=== PATIENT | female | born 1940 | race African-American/Black ===

== ENCOUNTER 2021-06-05 13:25 | Emergency (ER) | payer OTHER ==
[~2021-06-05] VITALS: Ht 175.3 cm; Wt 68.0 kg
[2021-06-05] MEDS ORDERED: SODIUM CHLORIDE 0.9% 250 ML IV ONE (14:15)
[2021-06-05] MEDS ORDERED: MECLIZINE 12.5MG TABLET PO ONE (14:15)
[2021-06-05] MEDS ORDERED: ONDANSETRON HCL 4MG/2ML INJ IV ONE (14:15)
[2021-06-05 14:29] LABS: BASOPHILS % 0.8 % (0.0-2.0); EOSINOPHILS % 0.3 % (0.0-5.0); HEMATOCRIT. 42.7 % (36.0-48.0); HEMOGLOBIN. 14.3 g/dL (12.0-16.0); MEAN CORPUSCULAR HEMOGLOBIN 30.2 pg (28.0-32.0); MEAN PLATELET VOLUME 8.8 fl (7.4-10.4); MONOCYTES % 3.5 % (2.0-8.0); NEUTROPHILS % 77.4 % (40.0-76.0); PLATELET 316 x1000/uL (130-400); RED BLOOD CELL COUNT 4.74 mill/uL (4.2-5.4); RED CELL DISTRIBUTION WIDTH 14.6 % (11.6-14.6)
[2021-06-05 14:35] LABS: CHLORIDE 101 mEq/L (98-107)
[2021-06-05] MEDS ORDERED: KCL 10MEQ/50ML PREMIX 50 ML IV ONE (15:00)
[2021-06-05] MEDS ORDERED: POTASSIUM CHLORIDE 20MEQ/PACKET PO ONE (15:00)
[2021-06-05 19:09] LABS: CLARITY URINE CLEAR (CLEAR); COLOR URINE YELLOW (YELLOW); KETONES URINE 1+ (NEGATIVE); LEUKOCYTE ESTERASE URINE NEGATIVE (NEGATIVE); NITRITE URINE NEGATIVE (NEGATIVE); OCCULT BLOOD URINE 1+ (NEGATIVE); PH URINE 6.5 (4.5-8.0); PROTEIN URINE TRACE (NEGATIVE); SPECIFIC GRAVITY URINE 1.011 (1.005-1.030)
[2021-06-05 22:43] VITALS: BP 139/72
== END 2021-06-05 23:00 | disposition short-term general hospital (02) ==
LOC: ER 13:46 → EDBD 13:46 → ER 23:00 → CANBEDREQ 06-06 01:38
DX: R55 Syncope and collapse (principal); R11.2 Nausea with vomiting, unspecified; R42 Dizziness and giddiness; E87.6 Hypokalemia
CPT/HCPCS: 36415; 70450; 71045; 80053; 81003; 83690; 83880; 84484; 85025; 93005; 96365; 96375; 99291; J2405; J7050; J8597

== ENCOUNTER 2021-07-04 13:33 | Inpatient (IN) | payer OTHER ==
[~2021-07-04] VITALS: Ht 167.6 cm; Wt 64.1 kg
[2021-07-04 15:30] LABS: HEMATOCRIT. 55.1 % (36.0-48.0); HEMOGLOBIN. 18.4 g/dL (12.0-16.0); MEAN CORPUSCULAR HEMOGLOBIN 29.6 pg (28.0-32.0); MEAN CORPUSCULAR VOLUME 88.7 fL (81.0-99.0); MEAN PLATELET VOLUME 11.3 fl (7.4-10.4); PLATELET 222 x1000/uL (130-400); RED BLOOD CELL COUNT 6.21 mill/uL (4.2-5.4)
[2021-07-04 15:38] LABS: CHLORIDE 104 mEq/L (98-107)
[2021-07-04] MEDS ORDERED: CEFTRIAXONE 1 G PREMIX 50 ML IV ONE (16:45)
[2021-07-04] MEDS ORDERED: SODIUM CHLORIDE 0.9% 1000ML BAG (SEPSIS BOLUS) IV ONE (16:45)
[2021-07-04] MEDS ORDERED: POTASSIUM CHLORIDE 20MEQ TABLET SR PO ONE (16:45)
[2021-07-04] MEDS ORDERED: KCL 10MEQ/50ML PREMIX 50 ML IV ONE ×2 (16:45)
[2021-07-04] MEDS ORDERED: KCL 20MEQ/100ML PREMIX 100 ML IV NR (17:00)
[2021-07-04 18:44] LABS: PLATELET ESTIMATE NORMAL
[2021-07-04] MEDS ORDERED: ONDANSETRON HCL 4MG/2ML INJ IV PRN (18:45)
[2021-07-04] MEDS ORDERED: IPRATROPIUM/ALBUTEROL 0.5-3(2.5)MG/3ML NEB HHN PRN (18:45)
[2021-07-04] MEDS: SODIUM CHLORIDE 0.45% 1,000 ML IV SCH (18:45)
[2021-07-04] MEDS ORDERED: MORPHINE SULFATE 2 MG/ML CPJ (NOT FOR IM USE) IV PRN (18:45)
[2021-07-04] MEDS ORDERED: ACETAMINOPHEN 325MG TABLET PO PRN ×2 (18:45)
[2021-07-04] MEDS: PIPERACILLIN/TAZOBACTAM 3.375 G in DEXTROSE 5% WATER 50 ML IV SCH (20:36)
[2021-07-05] MEDS: SODIUM CHLORIDE 0.45% 1,000 ML IV SCH (11:25)
[2021-07-05 11:55] LABS: BG BASE EXCESS -1.2 mmol/L (-2.0-2.0); BG CARBOXYHEMOGLOBIN 0.3 % (0.5-1.5); BG DEOXYHEMOGLOBIN 2.5 % (0.0-5.0); BG HCO3 ACT 19.4 mmol/L (22.0-26.0); BG METHEMOGLOBIN 0.3 % (0.0-1.5); BG OXYGEN SATURATION 97.5 % (92.0-98.5); BG OXYHEMOGLOBIN 96.9 % (94.0-97.0); BG PCO2 23.7 mmHg (35.0-45.0); BG PO2 99.7 mmHg (75.0-100.0); BG SAMPLE SITE RIGHT BRACHIAL; BG TOTAL HEMOGLOBIN 15.8 g/dL (12.0-18.0); BG VENT MODE ROOM AIR
[2021-07-05] MEDS: PIPERACILLIN/TAZOBACTAM 3.375 G in DEXTROSE 5% WATER 50 ML IV SCH ×2 (12:45→21:00)
[2021-07-05 15:30] LABS: HEMATOCRIT. 45.2 % (36.0-48.0); MEAN CORPUSCULAR HEMOGLOBIN 29.4 pg (28.0-32.0); MEAN CORPUSCULAR VOLUME 88.9 fL (81.0-99.0); MEAN PLATELET VOLUME 10.9 fl (7.4-10.4); PLATELET 166 x1000/uL (130-400); RED BLOOD CELL COUNT 5.09 mill/uL (4.2-5.4); RED CELL DISTRIBUTION WIDTH 15.5 % (11.6-14.6)
[2021-07-05 15:33] LABS: CHLORIDE 114 mEq/L (98-107)
[2021-07-05 18:55] LABS: PLATELET ESTIMATE NORMAL
[2021-07-05] MEDS ORDERED: NALOXONE HCL 0.4MG/ML VIAL IV PRN (20:30)
[2021-07-05] MEDS ORDERED: FAMOTIDINE 20MG TABLET PO SCH (21:00)
[2021-07-05] MEDS ORDERED: DILTIAZEM HCL 30MG TABLET PO PRN (21:49)
[2021-07-05] MEDS ORDERED: DILTIAZEM HCL 5MG/ML 5ML VIAL IV ONE ×2 (22:15→22:30)
[2021-07-06 00:17] LABS: CLARITY URINE CLOUDY (CLEAR); COLOR URINE YELLOW (YELLOW); KETONES URINE TRACE (NEGATIVE); LEUKOCYTE ESTERASE URINE NEGATIVE (NEGATIVE); NITRITE URINE NEGATIVE (NEGATIVE); OCCULT BLOOD URINE 1+ (NEGATIVE); PROTEIN URINE TRACE (NEGATIVE); SPECIFIC GRAVITY URINE 1.021 (1.005-1.030); UROBILINOGEN URINE 0.2 E.U./dL (0.2-1.0)
[2021-07-06 00:50] LABS: *BARBITURATES SCREEN URINE NEGATIVE (NEGATIVE); *BENZODIAZEPINES SCREEN URINE NEGATIVE (NEGATIVE); *COCAINE SCREEN URINE NEGATIVE (NEGATIVE)
[2021-07-06 00:51] LABS: *AMPHETAMINES SCREEN URINE NEGATIVE (NEGATIVE); CANNABINOID URINE SCREEN NEGATIVE (NEGATIVE); METHADONE URINE SCREEN NEGATIVE (NEGATIVE); OPIATES URINE SCREEN NEGATIVE (NEGATIVE); PHENCYCLIDINE URINE SCREEN NEGATIVE (NEGATIVE)
[2021-07-06 04:30] VITALS: BP 132/60
[2021-07-06] MEDS: SODIUM CHLORIDE 0.45% 1,000 ML IV SCH (06:08)
[2021-07-06 07:26] LABS: HEMATOCRIT. 41.2 % (36.0-48.0); MEAN CORPUSCULAR HEMOGLOBIN 30.1 pg (28.0-32.0); MEAN CORPUSCULAR VOLUME 88.7 fL (81.0-99.0); MEAN PLATELET VOLUME 11.1 fl (7.4-10.4); PLATELET 135 x1000/uL (130-400); RED BLOOD CELL COUNT 4.64 mill/uL (4.2-5.4); RED CELL DISTRIBUTION WIDTH 15.1 % (11.6-14.6)
[2021-07-06 08:00] VITALS: BP 144/90
[2021-07-06] MEDS: PIPERACILLIN/TAZOBACTAM 3.375 G in DEXTROSE 5% WATER 50 ML IV SCH ×3 (08:27→22:57)
[2021-07-06 08:41] LABS: CHLORIDE 118 mEq/L (98-107)
[2021-07-06 08:55] LABS: ETHANOL BLOOD < 10 mg/dL; LDL CHOLESTEROL 90 mg/dL (5-100); T4 FREE 1.43 ng/dL (0.76-1.46)
[2021-07-06 08:57] LABS: CREATINE KINASE 653 IU/L (26-192); HDL CHOLESTEROL 38 mg/dL (40-59); PHOSPHORUS 2.9 mg/dL (2.5-4.9)
[2021-07-06 09:17] LABS: VITAMIN B12 SERUM 697 pg/mL (211-911)
[2021-07-06 11:47] VITALS: BP 104/74
[2021-07-06] MEDS: DEXT 5%/0.2% NACL 1,000 ML IV SCH ×2 (11:51→21:21)
[2021-07-06 12:22] LABS: HEPATITIS B SURFACE ANTIGEN NEGATIVE
[2021-07-06 16:00] VITALS: BP 131/79
[2021-07-06 20:00] VITALS: BP 137/76
[2021-07-06] MEDS: FAMOTIDINE 20MG TABLET PO SCH (21:20)
[2021-07-07] VITALS: BP 148/84
[2021-07-07 00:46] LABS: PLATELET ESTIMATE NORMAL
[2021-07-07 04:00] VITALS: BP 142/82
[2021-07-07] MEDS: DEXT 5%/0.2% NACL 1,000 ML IV SCH (06:11)
[2021-07-07] MEDS: PIPERACILLIN/TAZOBACTAM 3.375 G in DEXTROSE 5% WATER 50 ML IV SCH (06:11)
[2021-07-07 07:07] LABS: PHOSPHORUS 2.1 mg/dL (2.5-4.9)
[2021-07-07 07:11] LABS: HEMATOCRIT. 37.2 % (36.0-48.0); HEMOGLOBIN. 12.8 g/dL (12.0-16.0); MEAN CORPUSCULAR HEMOGLOBIN 30.5 pg (28.0-32.0); MEAN CORPUSCULAR VOLUME 88.8 fL (81.0-99.0); MEAN PLATELET VOLUME 10.6 fl (7.4-10.4); PLATELET 104 x1000/uL (130-400); RED BLOOD CELL COUNT 4.19 mill/uL (4.2-5.4); RED CELL DISTRIBUTION WIDTH 15.1 % (11.6-14.6)
[2021-07-07 08:00] VITALS: BP 138/76
[2021-07-07] MEDS ORDERED: POTASSIUM CHLORIDE INJ 40 MEQ in DEXT 5% WATER 250 ML IV ONE (08:45)
[2021-07-07] MEDS ORDERED: POTASSIUM PHOS,M-BASIC-D-BASIC 15 MMOL in DEXT 5% WATER 245 ML IV SCH (10:00)
[2021-07-07] MEDS: DEXTROSE 5% WATER 1,000 ML IV SCH (10:55)
[2021-07-07] MEDS: KCL 20MEQ/100ML PREMIX 100 ML IV SCH ×2 (11:48→13:20)
[2021-07-07 12:00] VITALS: BP 157/78
[2021-07-07] MEDS: CEFEPIME 1,000 MG in DEXTROSE 5% WATER 50 ML IV SCH ×2 (13:20→22:57)
[2021-07-07] MEDS ORDERED: VANCOMYCIN 1 G PREMIX 200 ML IV NR (13:30)
[2021-07-07 15:42] VITALS: BP 124/65
[2021-07-07] MEDS: DOCUSATE SODIUM SUGAR FREE 100MG/10ML UDC NG SCH (17:00)
[2021-07-07] MEDS: METOCLOPRAMIDE HCL 5MG TABLET PO SCH (17:10)
[2021-07-07 20:00] VITALS: BP 139/85
[2021-07-07] MEDS: FAMOTIDINE 20MG TABLET PO SCH (21:40)
[2021-07-08] VITALS: BP 135/66
[2021-07-08] MEDS: METOCLOPRAMIDE HCL 5MG TABLET PO SCH ×3 (03:34→17:07)
[2021-07-08] MEDS: DEXTROSE 5% WATER 1,000 ML IV SCH ×2 (03:34→17:08)
[2021-07-08 04:00] VITALS: BP 147/62
[2021-07-08 06:59] LABS: PLATELET ESTIMATE SLIGHTLY DECREASED
[2021-07-08 08:00] VITALS: BP 155/82
[2021-07-08] MEDS ORDERED: VANCOMYCIN 750 MG PREMIX 150 ML IV SCH (08:00)
[2021-07-08] MEDS: CEFEPIME 1,000 MG in DEXTROSE 5% WATER 50 ML IV SCH ×2 (08:57→21:05)
[2021-07-08] MEDS: DOCUSATE SODIUM SUGAR FREE 100MG/10ML UDC NG SCH ×2 (09:00→17:00)
[2021-07-08 10:45] LABS: HEMATOCRIT. 37.2 % (36.0-48.0); HEMOGLOBIN. 12.4 g/dL (12.0-16.0); MEAN CORPUSCULAR HEMOGLOBIN 29.9 pg (28.0-32.0); MEAN CORPUSCULAR VOLUME 89.4 fL (81.0-99.0); MEAN PLATELET VOLUME 11.4 fl (7.4-10.4); PLATELET 80 x1000/uL (130-400); RED BLOOD CELL COUNT 4.16 mill/uL (4.2-5.4); RED CELL DISTRIBUTION WIDTH 15.5 % (11.6-14.6)
[2021-07-08 10:49] LABS: CHLORIDE 110 mEq/L (98-107)
[2021-07-08 10:55] LABS: PHOSPHORUS 1.7 mg/dL (2.5-4.9)
[2021-07-08 12:00] VITALS: BP 133/54
[2021-07-08] MEDS ORDERED: POTASSIUM PHOS,M-BASIC-D-BASIC 30 MMOL in DEXT 5% WATER 500 ML IV SCH (15:00)
[2021-07-08 16:00] VITALS: BP 146/83
[2021-07-08 16:34] LABS: PLATELET ESTIMATE DECREASED
[2021-07-08] MEDS: FAMOTIDINE 20MG TABLET PO SCH (21:05)
[2021-07-09] VITALS: BP 126/59
[2021-07-09] MEDS: DEXTROSE 5% WATER 1,000 ML IV SCH ×3 (00:45→10:46)
[2021-07-09] MEDS ORDERED: VANCOMYCIN 750 MG PREMIX 150 ML IV SCH (01:00)
[2021-07-09] MEDS: METOCLOPRAMIDE HCL 5MG TABLET PO SCH ×2 (01:48→10:46)
[2021-07-09 04:00] VITALS: BP 127/63
[2021-07-09 06:45] LABS: HEMATOCRIT. 35.2 % (36.0-48.0); HEMOGLOBIN. 11.9 g/dL (12.0-16.0); MEAN CORPUSCULAR VOLUME 88.3 fL (81.0-99.0); MEAN PLATELET VOLUME 11.7 fl (7.4-10.4); PLATELET 62 x1000/uL (130-400); RED BLOOD CELL COUNT 3.98 mill/uL (4.2-5.4); RED CELL DISTRIBUTION WIDTH 15.4 % (11.6-14.6)
[2021-07-09 08:00] VITALS: BP 137/66
[2021-07-09] MEDS: DOCUSATE SODIUM SUGAR FREE 100MG/10ML UDC NG SCH ×2 (09:00→17:00)
[2021-07-09 10:30] LABS: CHLORIDE 109 mEq/L (98-107)
[2021-07-09 10:36] LABS: PHOSPHORUS 2.9 mg/dL (2.5-4.9)
[2021-07-09] MEDS: CEFEPIME 1,000 MG in DEXTROSE 5% WATER 50 ML IV SCH (10:44)
[2021-07-09] MEDS: DOCUSATE SODIUM 100MG CAPSULE PO PRN ×2 (10:45→18:53)
[2021-07-09 11:43] LABS: CREATINE KINASE 601 IU/L (26-192)
[2021-07-09 12:00] VITALS: BP 130/78
[2021-07-09 16:00] VITALS: BP 139/80
[2021-07-09] MEDS: METOCLOPRAMIDE HCL 10MG TABLET PO SCH (18:53)
[2021-07-09] MEDS: MEROPENEM 1,000 MG in SODIUM CHLORIDE 0.9% 100 ML IV SCH (18:54)
[2021-07-09 20:00] VITALS: BP 135/45
[2021-07-09] MEDS: FAMOTIDINE 20MG TABLET PO SCH (21:53)
[2021-07-10] VITALS: BP 119/41
[2021-07-10 00:03] LABS: PLATELET ESTIMATE DECREASED
[2021-07-10] MEDS: MEROPENEM 1,000 MG in SODIUM CHLORIDE 0.9% 100 ML IV SCH ×3 (01:05→17:44)
[2021-07-10] MEDS: METOCLOPRAMIDE HCL 10MG TABLET PO SCH ×3 (01:11→17:44)
[2021-07-10 04:00] VITALS: BP 127/40
[2021-07-10 07:23] LABS: HEMATOCRIT. 34.1 % (36.0-48.0); HEMOGLOBIN. 11.7 g/dL (12.0-16.0); MEAN CORPUSCULAR HEMOGLOBIN 30.5 pg (28.0-32.0); MEAN PLATELET VOLUME 11.6 fl (7.4-10.4); PLATELET 69 x1000/uL (130-400); RED BLOOD CELL COUNT 3.83 mill/uL (4.2-5.4); RED CELL DISTRIBUTION WIDTH 15.6 % (11.6-14.6)
[2021-07-10 08:00] VITALS: BP 150/55
[2021-07-10 08:05] LABS: CHLORIDE 108 mEq/L (98-107)
[2021-07-10 08:29] LABS: PHOSPHORUS 2.7 mg/dL (2.5-4.9)
[2021-07-10 08:32] LABS: CREATINE KINASE 240 IU/L (26-192)
[2021-07-10] MEDS: DOCUSATE SODIUM SUGAR FREE 100MG/10ML UDC NG SCH ×2 (09:51→17:44)
[2021-07-10 12:00] VITALS: BP 136/59
[2021-07-10] MEDS ORDERED: BISACODYL 10MG SUPP PR NR (13:00)
[2021-07-10] MEDS: VANCOMYCIN 500 MG PREMIX 100 ML IV SCH (13:16)
[2021-07-10 14:10] LABS: PLATELET ESTIMATE DECREASED
[2021-07-10 15:52] VITALS: BP 140/49
[2021-07-10 20:00] VITALS: BP 171/75
[2021-07-10] MEDS: CLONIDINE 0.1MG TABLET PO PRN (21:03)
[2021-07-10] MEDS: FAMOTIDINE 20MG TABLET PO SCH ×2 (21:04→21:06)
[2021-07-11] VITALS: BP 142/65
[2021-07-11] MEDS: MEROPENEM 1,000 MG in SODIUM CHLORIDE 0.9% 100 ML IV SCH ×3 (01:25→17:44)
[2021-07-11] MEDS: METOCLOPRAMIDE HCL 10MG TABLET PO SCH ×2 (01:32→09:27)
[2021-07-11 04:00] VITALS: BP 148/76
[2021-07-11] MEDS: VANCOMYCIN 500 MG PREMIX 100 ML IV SCH (07:48)
[2021-07-11 08:00] VITALS: BP 155/73
[2021-07-11 08:21] LABS: CHLORIDE 112 mEq/L (98-107)
[2021-07-11 08:29] LABS: HEMATOCRIT. 32.4 % (36.0-48.0); HEMOGLOBIN. 10.9 g/dL (12.0-16.0); MEAN CORPUSCULAR HEMOGLOBIN 30.1 pg (28.0-32.0); MEAN CORPUSCULAR VOLUME 89.4 fL (81.0-99.0); MEAN PLATELET VOLUME 11.2 fl (7.4-10.4); PLATELET 97 x1000/uL (130-400); RED BLOOD CELL COUNT 3.62 mill/uL (4.2-5.4); RED CELL DISTRIBUTION WIDTH 15.6 % (11.6-14.6)
[2021-07-11 08:30] LABS: PHOSPHORUS 2.4 mg/dL (2.5-4.9)
[2021-07-11] MEDS: DOCUSATE SODIUM SUGAR FREE 100MG/10ML UDC NG SCH ×2 (09:26→17:44)
[2021-07-11] MEDS: POTASSIUM-SODIUM PHOSPHATE POWDER PACKET PO SCH ×2 (11:08→17:44)
[2021-07-11 12:00] VITALS: BP 145/78
[2021-07-11] MEDS ORDERED: DILTIAZEM HCL 60MG TABLET PO PRN (15:49)
[2021-07-11 16:00] VITALS: BP 140/75
[2021-07-11 20:00] VITALS: BP 121/77
[2021-07-11] MEDS: FAMOTIDINE 20MG TABLET PO SCH (20:34)
[2021-07-11] MEDS: PANTOPRAZOLE SODIUM 40 MG/VIAL IV SCH (20:34)
[2021-07-11] MEDS: AMIODARONE HCL 200 MG TABLET PO SCH (20:38)
[2021-07-11 23:39] LABS: PLATELET ESTIMATE DECREASED
[2021-07-12] VITALS: BP 159/79
[2021-07-12] MEDS: MEROPENEM 1,000 MG in SODIUM CHLORIDE 0.9% 100 ML IV SCH ×3 (00:49→18:04)
[2021-07-12] MEDS: METOCLOPRAMIDE HCL 10MG TABLET PO SCH ×3 (01:13→18:00)
[2021-07-12] MEDS: VANCOMYCIN 500 MG PREMIX 100 ML IV SCH ×2 (01:13→19:30)
[2021-07-12 04:00] VITALS: BP 117/78
[2021-07-12 07:47] VITALS: BP 128/75
[2021-07-12] MEDS: PANTOPRAZOLE SODIUM 40 MG/VIAL IV SCH ×2 (08:53→21:00)
[2021-07-12] MEDS: AMIODARONE HCL 200 MG TABLET PO SCH ×2 (09:00→21:24)
[2021-07-12] MEDS: POTASSIUM-SODIUM PHOSPHATE POWDER PACKET PO SCH ×2 (09:00→17:00)
[2021-07-12 12:00] VITALS: BP_SYST 139; BP_SYST 189; BP_DIAS 78
[2021-07-12 12:43] LABS: HEMATOCRIT. 31.6 % (36.0-48.0); HEMOGLOBIN. 10.7 g/dL (12.0-16.0); MEAN CORPUSCULAR HEMOGLOBIN 30.2 pg (28.0-32.0); MEAN CORPUSCULAR VOLUME 89.5 fL (81.0-99.0); MEAN PLATELET VOLUME 10.2 fl (7.4-10.4); PLATELET 154 x1000/uL (130-400); RED BLOOD CELL COUNT 3.53 mill/uL (4.2-5.4); RED CELL DISTRIBUTION WIDTH 15.8 % (11.6-14.6)
[2021-07-12] MEDS ORDERED: DILTIAZEM HCL 5MG/ML 5ML VIAL IV PRN (12:45)
[2021-07-12 12:53] LABS: CHLORIDE 112 mEq/L (98-107)
[2021-07-12 13:15] LABS: PROTHROMBIN TIME 10.7 sec (9.6-11.0)
[2021-07-12] MEDS: CLONIDINE 0.1MG TABLET PO PRN (14:46)
[2021-07-12] MEDS: DOCUSATE SODIUM SUGAR FREE 100MG/10ML UDC NG SCH ×2 (14:55→17:00)
[2021-07-12] MEDS ORDERED: DILTIAZEM HCL 90MG TABLET PO PRN (15:49)
[2021-07-12 16:00] VITALS: BP 144/74
[2021-07-12] MEDS ORDERED: POTASSIUM CHLORIDE 20MEQ/PACKET NG NR (17:30)
[2021-07-12] MEDS ORDERED: DEXT 5%/0.45% NACL 1000ML 1,000 ML IV SCH (18:30)
[2021-07-12] MEDS: DOXYCYCLINE HYCLATE 100MG CAPSULE PO SCH (18:58)
[2021-07-12 20:00] VITALS: BP 149/68
[2021-07-12] MEDS: FAMOTIDINE 20MG TABLET PO SCH (21:24)
[2021-07-12 23:42] LABS: PLATELET ESTIMATE NORMAL
[2021-07-13] VITALS: BP 143/74
[2021-07-13] MEDS: METOCLOPRAMIDE HCL 10MG TABLET PO SCH ×3 (02:00→18:01)
[2021-07-13] MEDS: MEROPENEM 1,000 MG in SODIUM CHLORIDE 0.9% 100 ML IV SCH ×3 (02:05→16:25)
[2021-07-13 04:00] VITALS: BP 146/59
[2021-07-13 07:11] LABS: HEMATOCRIT. 30.3 % (36.0-48.0); HEMOGLOBIN. 10.4 g/dL (12.0-16.0); MEAN CORPUSCULAR HEMOGLOBIN 30.7 pg (28.0-32.0); MEAN CORPUSCULAR VOLUME 89.7 fL (81.0-99.0); MEAN PLATELET VOLUME 9.4 fl (7.4-10.4); PLATELET 181 x1000/uL (130-400); RED BLOOD CELL COUNT 3.38 mill/uL (4.2-5.4); RED CELL DISTRIBUTION WIDTH 15.8 % (11.6-14.6)
[2021-07-13 07:21] LABS: PROTHROMBIN TIME 10.8 sec (9.6-11.0)
[2021-07-13 08:00] VITALS: BP 145/73
[2021-07-13 08:02] LABS: CHLORIDE 115 mEq/L (98-107)
[2021-07-13] MEDS: DOCUSATE SODIUM SUGAR FREE 100MG/10ML UDC NG SCH ×2 (09:00→18:00)
[2021-07-13] MEDS: DOXYCYCLINE HYCLATE 100MG CAPSULE PO SCH ×2 (09:00→18:00)
[2021-07-13] MEDS: POTASSIUM-SODIUM PHOSPHATE POWDER PACKET PO SCH ×2 (09:00→18:01)
[2021-07-13] MEDS: PANTOPRAZOLE SODIUM 40 MG/VIAL IV SCH ×2 (09:05→22:00)
[2021-07-13] MEDS: AMIODARONE HCL 200 MG TABLET PO SCH ×2 (09:05→21:59)
[2021-07-13] MEDS: DEXTROSE 5% WATER 1,000 ML IV SCH (10:00)
[2021-07-13] MEDS ORDERED: POTASSIUM PHOS,M-BASIC-D-BASIC 15 MMOL in DEXT 5% WATER 245 ML IV NR (11:00)
[2021-07-13] MEDS ORDERED: PROPOFOL 200MG/20ML VIAL IV ONE (11:09)
[2021-07-13] MEDS ORDERED: DEXAMETHASONE 4MG/ML 1ML VIAL ONE (11:09)
[2021-07-13] MEDS ORDERED: ONDANSETRON HCL 4MG/2ML INJ ONE (11:09)
[2021-07-13] MEDS ORDERED: LIDOCAINE HCL 1% 10 MG/ML 10ML VIAL ONE (11:09)
[2021-07-13 12:00] VITALS: BP 179/62
[2021-07-13 16:00] VITALS: BP 117/63
[2021-07-13 19:30] LABS: PLATELET ESTIMATE NORMAL
[2021-07-13] MEDS: FAMOTIDINE 20MG TABLET PO SCH (21:59)
[2021-07-14 00:11] VITALS: BP 142/68
[2021-07-14] MEDS: MEROPENEM 1,000 MG in SODIUM CHLORIDE 0.9% 100 ML IV SCH ×3 (01:43→17:20)
[2021-07-14] MEDS: METOCLOPRAMIDE HCL 10MG TABLET PO SCH ×4 (01:43→17:40)
[2021-07-14 04:00] VITALS: BP 144/67
[2021-07-14] MEDS: DEXTROSE 5% WATER 1,000 ML IV SCH (06:48)
[2021-07-14] MEDS: METOCLOPRAMIDE HCL 10MG/2ML VIAL IV SCH ×3 (06:49→17:21)
[2021-07-14 07:09] LABS: HEMATOCRIT. 32.3 % (36.0-48.0); HEMOGLOBIN. 10.9 g/dL (12.0-16.0); MEAN CORPUSCULAR HEMOGLOBIN 30.4 pg (28.0-32.0); MEAN CORPUSCULAR VOLUME 90.3 fL (81.0-99.0); MEAN PLATELET VOLUME 9.3 fl (7.4-10.4); PLATELET 228 x1000/uL (130-400); RED BLOOD CELL COUNT 3.58 mill/uL (4.2-5.4); RED CELL DISTRIBUTION WIDTH 16.1 % (11.6-14.6)
[2021-07-14 08:00] VITALS: BP 153/61
[2021-07-14] MEDS: DOCUSATE SODIUM SUGAR FREE 100MG/10ML UDC NG SCH ×3 (08:27→17:21)
[2021-07-14] MEDS: POTASSIUM-SODIUM PHOSPHATE POWDER PACKET PO SCH ×3 (08:27→17:21)
[2021-07-14] MEDS: PANTOPRAZOLE SODIUM 40 MG/VIAL IV SCH ×2 (08:27→20:30)
[2021-07-14] MEDS: AMIODARONE HCL 200 MG TABLET PO SCH ×2 (08:28→20:31)
[2021-07-14] MEDS: DOXYCYCLINE HYCLATE 100MG CAPSULE PO SCH ×2 (08:28→17:21)
[2021-07-14 11:42] LABS: CHLORIDE 114 mEq/L (98-107)
[2021-07-14 11:53] LABS: PHOSPHORUS 0.5 mg/dL (2.5-4.9)
[2021-07-14 12:00] VITALS: BP 138/53
[2021-07-14] MEDS ORDERED: POTASSIUM PHOS,M-BASIC-D-BASIC 15 MMOL in DEXT 5% WATER 245 ML IV NR (14:30)
[2021-07-14 16:00] VITALS: BP 128/52
[2021-07-14 16:57] LABS: PLATELET ESTIMATE NORMAL
[2021-07-14 18:10] LABS: PHOSPHORUS 2.2 mg/dL (2.5-4.9)
[2021-07-14] MEDS: FAMOTIDINE 20MG TABLET PO SCH (20:30)
[2021-07-15] VITALS: BP 132/56
[2021-07-15] MEDS: METOCLOPRAMIDE HCL 10MG/2ML VIAL IV SCH ×4 (00:57→17:19)
[2021-07-15] MEDS: MEROPENEM 1,000 MG in SODIUM CHLORIDE 0.9% 100 ML IV SCH ×3 (00:57→17:15)
[2021-07-15] MEDS: DEXTROSE 5% WATER 1,000 ML IV SCH ×2 (01:16→21:29)
[2021-07-15] MEDS: METOCLOPRAMIDE HCL 10MG TABLET PO SCH ×3 (02:46→17:14)
[2021-07-15 04:00] VITALS: BP 126/58
[2021-07-15 08:00] VITALS: BP 136/49
[2021-07-15] MEDS: DOCUSATE SODIUM SUGAR FREE 100MG/10ML UDC NG SCH ×2 (09:33→17:14)
[2021-07-15] MEDS: DOCUSATE SODIUM 100MG CAPSULE PO PRN (09:33)
[2021-07-15] MEDS: AMIODARONE HCL 200 MG TABLET PO SCH ×2 (09:33→21:25)
[2021-07-15] MEDS: DOXYCYCLINE HYCLATE 100MG CAPSULE PO SCH ×2 (09:33→17:14)
[2021-07-15] MEDS: POTASSIUM-SODIUM PHOSPHATE POWDER PACKET PO SCH ×2 (09:36→17:14)
[2021-07-15 12:09] VITALS: BP 136/67
[2021-07-15 16:00] VITALS: BP 141/56
[2021-07-15 16:25] LABS: HEMATOCRIT. 29.5 % (36.0-48.0); MEAN CORPUSCULAR HEMOGLOBIN 30.2 pg (28.0-32.0); MEAN PLATELET VOLUME 8.9 fl (7.4-10.4); PLATELET 283 x1000/uL (130-400); RED BLOOD CELL COUNT 3.32 mill/uL (4.2-5.4); RED CELL DISTRIBUTION WIDTH 15.6 % (11.6-14.6)
[2021-07-15 16:48] LABS: PLATELET ESTIMATE NORMAL
[2021-07-15 18:29] LABS: CHLORIDE 110 mEq/L (98-107)
[2021-07-15 18:35] LABS: PHOSPHORUS 2.5 mg/dL (2.5-4.9)
[2021-07-15 20:00] VITALS: BP 125/54
[2021-07-15] MEDS: FAMOTIDINE 20MG TABLET PO SCH (21:25)
[2021-07-16] VITALS: BP 113/53
[2021-07-16] MEDS: METOCLOPRAMIDE HCL 10MG/2ML VIAL IV SCH ×2 (00:53→06:33)
[2021-07-16] MEDS: MEROPENEM 1,000 MG in SODIUM CHLORIDE 0.9% 100 ML IV SCH ×2 (00:54→09:00)
[2021-07-16] MEDS: METOCLOPRAMIDE HCL 10MG TABLET PO SCH ×2 (02:35→10:00)
[2021-07-16 04:00] VITALS: BP 122/60
[2021-07-16 08:45] VITALS: BP 118/61
[2021-07-16] MEDS: DOCUSATE SODIUM SUGAR FREE 100MG/10ML UDC NG SCH (09:00)
[2021-07-16] MEDS: POTASSIUM-SODIUM PHOSPHATE POWDER PACKET PO SCH (09:00)
[2021-07-16] MEDS: DOXYCYCLINE HYCLATE 100MG CAPSULE PO SCH (09:00)
[2021-07-16] MEDS: AMIODARONE HCL 200 MG TABLET PO SCH (09:00)
[2021-07-16 12:06] LABS: HEMATOCRIT. 31.2 % (36.0-48.0); HEMOGLOBIN. 10.2 g/dL (12.0-16.0); MEAN CORPUSCULAR HEMOGLOBIN 29.7 pg (28.0-32.0); MEAN CORPUSCULAR VOLUME 90.5 fL (81.0-99.0); MEAN PLATELET VOLUME 8.4 fl (7.4-10.4); PLATELET 312 x1000/uL (130-400); RED BLOOD CELL COUNT 3.45 mill/uL (4.2-5.4); RED CELL DISTRIBUTION WIDTH 15.8 % (11.6-14.6)
[2021-07-16 12:14] LABS: CHLORIDE 108 mEq/L (98-107)
[2021-07-16 12:19] LABS: PHOSPHORUS 1.9 mg/dL (2.5-4.9)
[2021-07-16] MEDS ORDERED: METOCLOPRAMIDE HCL 10MG/2ML VIAL IV SCH (13:15)
[2021-07-16 14:04] LABS: PLATELET ESTIMATE NORMAL
[2021-07-16 15:56] VITALS: BP 120/74
[2021-07-17] MEDS ORDERED: AMIODARONE HCL 200 MG TABLET PO SCH (09:00)
== END 2021-07-16 16:54 | DRG 871 ==
LOC: ER 13:33 → EDBEDREQTM 17:37 → EDBEDREQ 17:37 → MICUSO 07-05 02:51 → 5WST 07-05 20:15
PROVIDERS: ADMIT Internal Medicine; ATTEND Internal Medicine
PROC: 4A10X4Z Monitoring of Central Nervous Electrical Activity, External Approach (ICD-10-PCS; principal; 2021-07-06)
PROC: 0DB78ZX Excision of Stomach, Pylorus, Via Natural or Artificial Opening Endoscopic, Diagnostic (ICD-10-PCS; 2021-07-13)
PROC: 0DH63UZ Insertion of Feeding Device into Stomach, Percutaneous Approach (ICD-10-PCS; 2021-07-13)
DX: A41.9 Sepsis, unspecified organism (principal); G92.8 Other toxic encephalopathy; G82.50 Quadriplegia, unspecified; I63.9 Cerebral infarction, unspecified; N17.0 Acute kidney failure with tubular necrosis; J69.0 Pneumonitis due to inhalation of food and vomit; E87.0 Hyperosmolality and hypernatremia; E87.2 Acidosis; M62.82 Rhabdomyolysis; R47.01 Aphasia; J98.11 Atelectasis; D75.1 Secondary polycythemia; E87.6 Hypokalemia; F03.90 Unspecified dementia, unspecified severity, without behavioral disturbance, psychotic disturbance, mood disturbance, and anxiety; I12.9 Hypertensive chronic kidney disease with stage 1 through stage 4 chronic kidney disease, or unspecified chronic kidney disease; K76.0 Fatty (change of) liver, not elsewhere classified; N18.2 Chronic kidney disease, stage 2 (mild); R65.20 Severe sepsis without septic shock; L98.429 Non-pressure chronic ulcer of back with unspecified severity; R13.10 Dysphagia, unspecified; R53.81 Other malaise; R26.9 Unspecified abnormalities of gait and mobility; D64.9 Anemia, unspecified; I48.0 Paroxysmal atrial fibrillation; Z20.822 Contact with and (suspected) exposure to COVID-19; K20.90 Esophagitis, unspecified without bleeding; K29.50 Unspecified chronic gastritis without bleeding; K59.00 Constipation, unspecified; D69.6 Thrombocytopenia, unspecified; Z82.49 Family history of ischemic heart disease and other diseases of the circulatory system; Z78.1 Physical restraint status; Z90.710 Acquired absence of both cervix and uterus; K80.20 Calculus of gallbladder without cholecystitis without obstruction
CPT/HCPCS: 36415; 36600; 70551; 71045; 72040; 73521; 74018; 74176; 76700; 80048; 80053; 80061; 80076; 80202; 80305; 80320; 81003; 82140; 82375; 82550; 82607; 82746; 82805; 83036; 83605; 83735; 83880; 84100; 84132; 84145; 84439; 84443; 84481; 84484; 85025; 86705; 86709; 86803; 86850; 86900; 87340; 87426; 88305; 92610; 93005; 93306; 93880; 94640; 97110; 97162; 97166; 97530; 99291; C1893; C9113; J0692; J0696; J1100; J2185; J2270; J2405; J2543; J2704; J2765; J3370; J3480; J3490; J7030; J7040; J7050; J7060; J7070; J8597; A4315; G0480